=== PATIENT | female | born 1935 | race Caucasian/White ===

== ENCOUNTER → 2017-04-07 | Outpatient (CLI) | payer MEDICARE, OTHER ==
[2017-04-07 12:04] LABS: HEMATOCRIT 35.2 % (36.0-47.0); HEMOGLOBIN 11.8 g/dL (12.0-15.5); HGB HCT DIFFERENCE 0.2; MEAN CORPUSCULAR HEMOGLOBIN 31.5 pg (27.0-33.4); MEAN CORPUSCULAR HGB CONC 33.6 g/dL (32.0-36.0); MEAN CORPUSCULAR VOLUME 94 fl (80-97); RED BLOOD COUNT 3.75 10^6/uL (3.72-5.28); RED CELL DISTRIBUTION WIDTH 13.2 % (11.5-14.0); WHITE BLOOD COUNT 4.5 10^3/uL (4.0-10.5)
[2017-04-07 12:07] LABS: APPEARANCE,URINE CLEAR; BILIRUBIN,URINE NEGATIVE (NEGATIVE); GLUCOSE, URINE NEGATIVE (NEGATIVE); KETONES,URINE NEGATIVE (NEGATIVE); LEUKOCYTE ESTERASE,URINE NEGATIVE (NEGATIVE); NITRITE,URINE NEGATIVE (NEGATIVE); PROTEIN,URINE NEGATIVE (NEGATIVE); URINE SPECIFIC GRAVITY 1.009; UROBILINOGEN,URINE NEGATIVE mg/dL (<2.0)
[2017-04-07 12:28] LABS: ANION GAP 9 (5-19); BLOOD UREA NITROGEN 40 mg/dL (7-20); CALCIUM 9.4 mg/dL (8.4-10.2); CARBON DIOXIDE 22 mmol/L (22-30); CHLORIDE 110 mmol/L (98-107); CREATININE RESULT 2.12 mg/dL (0.52-1.25); GLUCOSE 137 mg/dL (75-110); POTASSIUM 4.6 mmol/L (3.6-5.0); SODIUM 141.4 mmol/L (137-145)
[2017-04-07 12:34] LABS: ANION GAP 9 (5-19); BLOOD UREA NITROGEN 40 mg/dL (7-20); CALCIUM 9.4 mg/dL (8.4-10.2); CARBON DIOXIDE 22 mmol/L (22-30); CHLORIDE 110 mmol/L (98-107); CREATININE RESULT 2.12 mg/dL (0.52-1.25); GLUCOSE 137 mg/dL (75-110); POTASSIUM 4.6 mmol/L (3.6-5.0); SODIUM 141.4 mmol/L (137-145)
[2017-04-07 13:26] LABS: ALANINE AMINOTRANSFERASE 40 U/L (9-52); ALKALINE PHOSPHATASE 87 U/L (38-126); ASPARTATE AMINO TRANSFERASE 34 U/L (14-36); BILIRUBIN,DIRECT 0.4 mg/dL (0.0-0.4); BILIRUBIN,TOTAL 0.6 mg/dL (0.2-1.3); TOTAL PROTEIN 6.4 g/dL (6.3-8.2); URIC ACID 5.9 mg/dL (2.5-7.5)
== END ==
LOC: OD 11:01
PROVIDERS: ATTEND Internal Medicine Cardiovascular Disease
DX: I12.9 Hypertensive chronic kidney disease with stage 1 through stage 4 chronic kidney disease, or unspecified chronic kidney disease (principal); N18.3 Chronic kidney disease, stage 3 (moderate); E78.2 Mixed hyperlipidemia; R00.2 Palpitations; M15.9 Polyosteoarthritis, unspecified
CPT/HCPCS: 36415; 80048; 80076; 81001; 84550; 85027

== ENCOUNTER → 2017-04-14 | Outpatient (CLI) | payer MEDICARE, OTHER ==
[2017-04-14 13:29] LABS: CHOLESTEROL 117.01 mg/dL (0-200); Direct HDL 46 mg/dL (>40); TRIGLYCERIDES 100 mg/dL (<150)
[2017-04-14 13:40] LABS: DIRECT LDL 42 mg/dL (<100)
== END ==
LOC: OD 11:59
PROVIDERS: ATTEND Internal Medicine Cardiovascular Disease
DX: I10 Essential (primary) hypertension (principal); E78.2 Mixed hyperlipidemia; R00.2 Palpitations; M15.9 Polyosteoarthritis, unspecified
CPT/HCPCS: 36415; 80061

== ENCOUNTER → 2017-09-05 | Outpatient (CLI) | payer MEDICARE, OTHER ==
[2017-09-05 10:46] LABS: HEMATOCRIT 36.8 % (36.0-47.0); HEMOGLOBIN 12.6 g/dL (12.0-15.5); MEAN CORPUSCULAR HEMOGLOBIN 31.8 pg (27.0-33.4); MEAN CORPUSCULAR HGB CONC 34.2 g/dL (32.0-36.0); MEAN CORPUSCULAR VOLUME 93 fl (80-97); RED BLOOD COUNT 3.95 10^6/uL (3.72-5.28); WHITE BLOOD COUNT 5.6 10^3/uL (4.0-10.5)
[2017-09-05 11:15] LABS: ANION GAP 13 (5-19); BLOOD UREA NITROGEN 34 mg/dL (7-20); CALCIUM 9.1 mg/dL (8.4-10.2); CARBON DIOXIDE 23 mmol/L (22-30); CHLORIDE 110 mmol/L (98-107); CREATININE RESULT 2.33 mg/dL (0.52-1.25); GLUCOSE 99 mg/dL (75-110); POTASSIUM 4.2 mmol/L (3.6-5.0); SODIUM 145.6 mmol/L (137-145)
[2017-09-05 11:19] LABS: ANION GAP 13 (5-19); BLOOD UREA NITROGEN 34 mg/dL (7-20); CALCIUM 9.1 mg/dL (8.4-10.2); CARBON DIOXIDE 23 mmol/L (22-30); CHLORIDE 110 mmol/L (98-107); CREATININE RESULT 2.33 mg/dL (0.52-1.25); GLUCOSE 99 mg/dL (75-110); POTASSIUM 4.2 mmol/L (3.6-5.0); SODIUM 145.6 mmol/L (137-145)
[2017-09-05 15:25] LABS: APPEARANCE,URINE CLEAR; BILIRUBIN,URINE NEGATIVE (NEGATIVE); GLUCOSE, URINE NEGATIVE (NEGATIVE); KETONES,URINE NEGATIVE (NEGATIVE); LEUKOCYTE ESTERASE,URINE NEGATIVE (NEGATIVE); NITRITE,URINE NEGATIVE (NEGATIVE); PROTEIN,URINE NEGATIVE (NEGATIVE); URINE SPECIFIC GRAVITY 1.006; UROBILINOGEN,URINE NEGATIVE mg/dL (<2.0)
== END ==
LOC: OD 08:58
PROVIDERS: ATTEND Internal Medicine Nephrology
DX: I12.9 Hypertensive chronic kidney disease with stage 1 through stage 4 chronic kidney disease, or unspecified chronic kidney disease (principal); N18.3 Chronic kidney disease, stage 3 (moderate); E87.5 Hyperkalemia; M10.00 Idiopathic gout, unspecified site
CPT/HCPCS: 36415; 80048; 81001; 85027

== ENCOUNTER → 2017-10-25 | Outpatient (CLI) | payer MEDICARE, OTHER ==
[2017-10-25 17:42] LABS: ANION GAP 13 (5-19); BLOOD UREA NITROGEN 42 mg/dL (7-20); CALCIUM 9.1 mg/dL (8.4-10.2); CARBON DIOXIDE 22 mmol/L (22-30); CHLORIDE 108 mmol/L (98-107); CREATININE RESULT 2.19 mg/dL (0.52-1.25); GLUCOSE 100 mg/dL (75-110); POTASSIUM 4.9 mmol/L (3.6-5.0); SODIUM 142.8 mmol/L (137-145)
== END ==
LOC: OD 15:37
PROVIDERS: ATTEND Internal Medicine Cardiovascular Disease
DX: I12.9 Hypertensive chronic kidney disease with stage 1 through stage 4 chronic kidney disease, or unspecified chronic kidney disease (principal); N18.4 Chronic kidney disease, stage 4 (severe)
CPT/HCPCS: 36415; 80048

== ENCOUNTER → 2018-01-26 | Outpatient (CLI) | payer MEDICARE, OTHER ==
[2018-01-26 17:08] LABS: APPEARANCE,URINE CLEAR; BILIRUBIN,URINE NEGATIVE (NEGATIVE); COLOR,URINE STRAW; GLUCOSE, URINE NEGATIVE (NEGATIVE); KETONES,URINE NEGATIVE (NEGATIVE); LEUKOCYTE ESTERASE,URINE NEGATIVE (NEGATIVE); NITRITE,URINE NEGATIVE (NEGATIVE); PROTEIN,URINE NEGATIVE (NEGATIVE); URINE SPECIFIC GRAVITY 1.011; UROBILINOGEN,URINE NEGATIVE mg/dL (<2.0)
[2018-01-26 17:08] LABS: HEMATOCRIT 36.6 % (36.0-47.0); MEAN CORPUSCULAR HEMOGLOBIN 30.6 pg (27.0-33.4); MEAN CORPUSCULAR HGB CONC 32.7 g/dL (32.0-36.0); MEAN CORPUSCULAR VOLUME 94 fl (80-97); PLATELET COUNT 149 10^3/uL (150-450); RED BLOOD COUNT 3.91 10^6/uL (3.72-5.28); RED CELL DISTRIBUTION WIDTH 14.3 % (11.5-14.0); WHITE BLOOD COUNT 4.8 10^3/uL (4.0-10.5)
[2018-01-26 17:15] LABS: ANION GAP 11 (5-19); BLOOD UREA NITROGEN 36 mg/dL (7-20); CARBON DIOXIDE 19 mmol/L (22-30); CHLORIDE 112 mmol/L (98-107); GLUCOSE 93 mg/dL (75-110); POTASSIUM 4.3 mmol/L (3.6-5.0); SODIUM 141.7 mmol/L (137-145); URIC ACID 5.3 mg/dL (2.5-7.5)
== END ==
LOC: OD 15:11
PROVIDERS: ATTEND Internal Medicine Nephrology
DX: I12.9 Hypertensive chronic kidney disease with stage 1 through stage 4 chronic kidney disease, or unspecified chronic kidney disease (principal); N18.4 Chronic kidney disease, stage 4 (severe); E87.5 Hyperkalemia; M10.00 Idiopathic gout, unspecified site
CPT/HCPCS: 36415; 80048; 81001; 84550; 85027

== ENCOUNTER → 2018-03-12 | Outpatient (CLI) | payer MEDICARE, OTHER ==
--- NOTE | 2018-03-12 16:12 | RADIOLOGY REPORT (SQ) ---
EXAM DESCRIPTION: RIBS BILATERAL W/PA CHEST COMPLETED DATE/TIME: 03/12/2018 3:35 pm REASON FOR STUDY: OTHER CHEST PAIN R07.89 OTHER CHEST PAIN COMPARISON: 12/11/2012. NUMBER OF VIEWS: Six views. TECHNIQUE: Images acquired of the right and left ribs in the area of focal concern. LIMITATIONS: None. FINDINGS: RIBS: No acute displaced fracture. No worrisome bone lesions. LUNGS: Limited exam. No obvious pneumothorax. No pleural effusion. OTHER: No other significant finding. IMPRESSION: NO ACUTE DISPLACED RIB FRACTURE. COMMENT: SITE OF TRAUMA/COMPLAINT MARKED/STAMP COMPLETED: YES. TECHNICAL DOCUMENTATION: JOB ID: [id number] [employer]- All Rights Reserved Reading location - IP/workstation name: [email or web address]
== END ==
LOC: OD 15:14
PROVIDERS: ATTEND Internal Medicine Cardiovascular Disease
DX: R07.89 Other chest pain (principal)
CPT/HCPCS: 71111

== ENCOUNTER → 2018-04-02 | Outpatient (CLI) | payer MEDICARE, OTHER ==
[2018-04-02 16:53] LABS: HEMATOCRIT 34.5 % (36.0-47.0); HEMOGLOBIN 11.3 g/dL (12.0-15.5); MEAN CORPUSCULAR HGB CONC 32.8 g/dL (32.0-36.0); MEAN CORPUSCULAR VOLUME 94 fl (80-97); PLATELET COUNT 135 10^3/uL (150-450); RED BLOOD COUNT 3.66 10^6/uL (3.72-5.28); RED CELL DISTRIBUTION WIDTH 15.6 % (11.5-14.0); WHITE BLOOD COUNT 4.9 10^3/uL (4.0-10.5)
[2018-04-02 17:09] LABS: ANION GAP 16 (5-19); BLOOD UREA NITROGEN 48 mg/dL (7-20); CARBON DIOXIDE 17 mmol/L (22-30); CHLORIDE 112 mmol/L (98-107); GLUCOSE 193 mg/dL (75-110); POTASSIUM 5.1 mmol/L (3.6-5.0); SODIUM 145.2 mmol/L (137-145); URIC ACID 6.9 mg/dL (2.5-7.5)
== END ==
LOC: OD 15:30
PROVIDERS: ATTEND Internal Medicine Nephrology
DX: I12.9 Hypertensive chronic kidney disease with stage 1 through stage 4 chronic kidney disease, or unspecified chronic kidney disease (principal); N18.4 Chronic kidney disease, stage 4 (severe); E87.5 Hyperkalemia
CPT/HCPCS: 36415; 80048; 84550; 85027

== ENCOUNTER → 2018-06-12 | Outpatient (CLI) | payer MEDICARE, OTHER ==
[2018-06-12 10:14] LABS: HEMATOCRIT 38.2 % (36.0-47.0); HEMOGLOBIN 12.6 g/dL (12.0-15.5); MEAN CORPUSCULAR HEMOGLOBIN 30.9 pg (27.0-33.4); MEAN CORPUSCULAR VOLUME 94 fl (80-97); PLATELET COUNT 130 10^3/uL (150-450); RED BLOOD COUNT 4.08 10^6/uL (3.72-5.28); WHITE BLOOD COUNT 5.6 10^3/uL (4.0-10.5)
[2018-06-12 10:40] LABS: ALANINE AMINOTRANSFERASE 39 U/L (9-52); ALBUMIN 4.2 g/dL (3.5-5.0); ALKALINE PHOSPHATASE 100 U/L (38-126); ASPARTATE AMINO TRANSFERASE 23 U/L (14-36); BILIRUBIN,DIRECT 0.3 mg/dL (0.0-0.4); BILIRUBIN,TOTAL 0.6 mg/dL (0.2-1.3); BLOOD UREA NITROGEN 54 mg/dL (7-20); CALCIUM 9.2 mg/dL (8.4-10.2); CARBON DIOXIDE 20 mmol/L (22-30); CHLORIDE 111 mmol/L (98-107); CHOLESTEROL 122.41 mg/dL (0-200); GLUCOSE 92 mg/dL (75-110); POTASSIUM 4.2 mmol/L (3.6-5.0); TRIGLYCERIDES 138 mg/dL (<150)
[2018-06-12 10:43] LABS: ANION GAP 13 (5-19); SODIUM 143.5 mmol/L (137-145)
[2018-06-12 10:51] LABS: DIRECT LDL 48 mg/dL (<100)
== END ==
LOC: LAB 09:01
PROVIDERS: ATTEND Internal Medicine Cardiovascular Disease
DX: N18.4 Chronic kidney disease, stage 4 (severe) (principal); E78.2 Mixed hyperlipidemia; Z79.899 Other long term (current) drug therapy
CPT/HCPCS: 36415; 80048; 80061; 80076; 85027

== ENCOUNTER → 2018-10-19 | Outpatient (CLI) | payer MEDICARE, OTHER ==
[2018-10-19 13:53] LABS: HEMATOCRIT 36.6 % (36.0-47.0); HEMOGLOBIN 12.5 g/dL (12.0-15.5); MEAN CORPUSCULAR HGB CONC 34.1 g/dL (32.0-36.0); MEAN CORPUSCULAR VOLUME 94 fl (80-97); PLATELET COUNT 136 10^3/uL (150-450); RED CELL DISTRIBUTION WIDTH 13.6 % (11.5-14.0); WHITE BLOOD COUNT 6.5 10^3/uL (4.0-10.5)
[2018-10-19 14:15] LABS: ANION GAP 14 (5-19); BLOOD UREA NITROGEN 48 mg/dL (7-20); CALCIUM 9.3 mg/dL (8.4-10.2); CARBON DIOXIDE 19 mmol/L (22-30); CHLORIDE 111 mmol/L (98-107); GLUCOSE 103 mg/dL (75-110); SODIUM 143.6 mmol/L (137-145)
[2018-10-19 17:17] LABS: ANION GAP 12 (5-19); BLOOD UREA NITROGEN 52 mg/dL (7-20); CALCIUM 9.2 mg/dL (8.4-10.2); CARBON DIOXIDE 24 mmol/L (22-30); CHLORIDE 109 mmol/L (98-107); GLUCOSE 103 mg/dL (75-110); POTASSIUM 5.3 mmol/L (3.6-5.0); SODIUM 145.1 mmol/L (137-145)
== END ==
LOC: OD 12:40
PROVIDERS: ATTEND Internal Medicine Cardiovascular Disease
DX: D69.6 Thrombocytopenia, unspecified (principal); Z79.899 Other long term (current) drug therapy; I10 Essential (primary) hypertension
CPT/HCPCS: 36415; 80048; 85027

== ENCOUNTER → 2018-11-19 | Outpatient (CLI) | payer MEDICARE, OTHER ==
[2018-11-19 13:16] LABS: ANION GAP 9 (5-19); BLOOD UREA NITROGEN 45 mg/dL (7-20); CALCIUM 9.7 mg/dL (8.4-10.2); CARBON DIOXIDE 24 mmol/L (22-30); CHLORIDE 109 mmol/L (98-107); CHOLESTEROL 134.79 mg/dL (0-200); GLUCOSE 125 mg/dL (75-110); SODIUM 141.9 mmol/L (137-145); TRIGLYCERIDES 100 mg/dL (<150)
[2018-11-19 13:27] LABS: DIRECT LDL 59 mg/dL (<100)
== END ==
LOC: LAB 12:27
PROVIDERS: ATTEND Internal Medicine Cardiovascular Disease
DX: E78.2 Mixed hyperlipidemia (principal); N18.4 Chronic kidney disease, stage 4 (severe); E87.5 Hyperkalemia
CPT/HCPCS: 36415; 80048; 80061

== ENCOUNTER → 2018-12-27 | Outpatient (CLI) | payer MEDICARE, OTHER ==
[2018-12-27 11:03] LABS: HEMATOCRIT 34.7 % (36.0-47.0); HEMOGLOBIN 11.8 g/dL (12.0-15.5); MEAN CORPUSCULAR HEMOGLOBIN 31.7 pg (27.0-33.4); MEAN CORPUSCULAR VOLUME 93 fl (80-97); PLATELET COUNT 137 10^3/uL (150-450); RED BLOOD COUNT 3.73 10^6/uL (3.72-5.28); RED CELL DISTRIBUTION WIDTH 13.5 % (11.5-14.0); WHITE BLOOD COUNT 5.9 10^3/uL (4.0-10.5)
[2018-12-27 11:17] LABS: ALANINE AMINOTRANSFERASE 31 U/L (9-52); ALBUMIN 3.8 g/dL (3.5-5.0); ALKALINE PHOSPHATASE 90 U/L (38-126); ANION GAP 8 (5-19); ASPARTATE AMINO TRANSFERASE 28 U/L (14-36); BILIRUBIN,DIRECT 0.2 mg/dL (0.0-0.4); BILIRUBIN,TOTAL 0.4 mg/dL (0.2-1.3); BLOOD UREA NITROGEN 52 mg/dL (7-20); CALCIUM 8.6 mg/dL (8.4-10.2); CARBON DIOXIDE 22 mmol/L (22-30); CHLORIDE 110 mmol/L (98-107); CHOLESTEROL 103.52 mg/dL (0-200); GLUCOSE 107 mg/dL (75-110); POTASSIUM 4.5 mmol/L (3.6-5.0); SODIUM 140.4 mmol/L (137-145); TOTAL PROTEIN 6.2 g/dL (6.3-8.2); TRIGLYCERIDES 98 mg/dL (<150)
[2018-12-27 11:29] LABS: DIRECT LDL 48 mg/dL (<100)
[2018-12-27 11:34] LABS: ANION GAP 8 (5-19); BLOOD UREA NITROGEN 52 mg/dL (7-20); CALCIUM 8.6 mg/dL (8.4-10.2); CARBON DIOXIDE 22 mmol/L (22-30); CHLORIDE 110 mmol/L (98-107); GLUCOSE 107 mg/dL (75-110); POTASSIUM 4.5 mmol/L (3.6-5.0); SODIUM 140.4 mmol/L (137-145)
[2018-12-27 11:35] LABS: ALANINE AMINOTRANSFERASE 31 U/L (9-52); ALBUMIN 3.8 g/dL (3.5-5.0); ALKALINE PHOSPHATASE 90 U/L (38-126); ASPARTATE AMINO TRANSFERASE 28 U/L (14-36); BILIRUBIN,DIRECT 0.2 mg/dL (0.0-0.4); BILIRUBIN,TOTAL 0.4 mg/dL (0.2-1.3); CHOLESTEROL 103.52 mg/dL (0-200); DIRECT LDL 48 mg/dL (<100); TOTAL PROTEIN 6.2 g/dL (6.3-8.2); TRIGLYCERIDES 98 mg/dL (<150)
== END ==
LOC: OD 09:41
PROVIDERS: ATTEND Internal Medicine Cardiovascular Disease
DX: E78.2 Mixed hyperlipidemia (principal); N18.4 Chronic kidney disease, stage 4 (severe); Z79.899 Other long term (current) drug therapy
CPT/HCPCS: 36415; 80048; 80061; 80076; 85027

== ENCOUNTER → 2019-04-29 | Outpatient (CLI) | payer MEDICARE, OTHER ==
[2019-04-29 11:06] LABS: HEMATOCRIT 37.5 % (36.0-47.0); HEMOGLOBIN 12.5 g/dL (12.0-15.5); MEAN CORPUSCULAR HEMOGLOBIN 31.3 pg (27.0-33.4); MEAN CORPUSCULAR HGB CONC 33.2 g/dL (32.0-36.0); MEAN CORPUSCULAR VOLUME 94 fl (80-97); PLATELET COUNT 129 10^3/uL (150-450); RED BLOOD COUNT 3.98 10^6/uL (3.72-5.28); RED CELL DISTRIBUTION WIDTH 13.1 % (11.5-14.0); WHITE BLOOD COUNT 6.2 10^3/uL (4.0-10.5)
[2019-04-29 11:23] LABS: ALANINE AMINOTRANSFERASE 33 U/L (9-52); ALBUMIN 4.1 g/dL (3.5-5.0); ALKALINE PHOSPHATASE 99 U/L (38-126); ANION GAP 13 (5-19); ASPARTATE AMINO TRANSFERASE 22 U/L (14-36); BILIRUBIN,DIRECT 0.3 mg/dL (0.0-0.4); BILIRUBIN,TOTAL 0.4 mg/dL (0.2-1.3); BLOOD UREA NITROGEN 59 mg/dL (7-20); CALCIUM 9.1 mg/dL (8.4-10.2); CARBON DIOXIDE 21 mmol/L (22-30); CHLORIDE 111 mmol/L (98-107); GLUCOSE 111 mg/dL (75-110); POTASSIUM 4.8 mmol/L (3.6-5.0); SODIUM 144.5 mmol/L (137-145); TOTAL PROTEIN 6.8 g/dL (6.3-8.2); TRIGLYCERIDES 85 mg/dL (<150)
[2019-04-29 11:34] LABS: DIRECT LDL 50 mg/dL (<100)
== END ==
LOC: OD 09:47
PROVIDERS: ATTEND Physician Assistant
DX: Z79.899 Other long term (current) drug therapy (principal); I12.9 Hypertensive chronic kidney disease with stage 1 through stage 4 chronic kidney disease, or unspecified chronic kidney disease; E78.2 Mixed hyperlipidemia; N18.4 Chronic kidney disease, stage 4 (severe)
CPT/HCPCS: 36415; 80048; 80061; 80076; 85027

== ENCOUNTER → 2019-09-30 | Outpatient (CLI) | payer MEDICARE, OTHER ==
[2019-09-30 11:29] LABS: HEMATOCRIT 39.6 % (36.0-47.0); HEMOGLOBIN 13.1 g/dL (12.0-15.5); MEAN CORPUSCULAR HEMOGLOBIN 31.3 pg (27.0-33.4); MEAN CORPUSCULAR VOLUME 95 fl (80-97); PLATELET COUNT 126 10^3/uL (150-450); RED BLOOD COUNT 4.17 10^6/uL (3.72-5.28); RED CELL DISTRIBUTION WIDTH 14.4 % (11.5-14.0); WHITE BLOOD COUNT 5.6 10^3/uL (4.0-10.5)
[2019-09-30 11:44] LABS: APPEARANCE,URINE CLEAR; BILIRUBIN,URINE NEGATIVE (NEGATIVE); COLOR,URINE STRAW; GLUCOSE, URINE NEGATIVE (NEGATIVE); KETONES,URINE NEGATIVE (NEGATIVE); LEUKOCYTE ESTERASE,URINE NEGATIVE (NEGATIVE); NITRITE,URINE NEGATIVE (NEGATIVE); PROTEIN,URINE NEGATIVE (NEGATIVE); URINE SPECIFIC GRAVITY 1.012; UROBILINOGEN,URINE NEGATIVE mg/dL (<2.0)
[2019-09-30 11:49] LABS: ALBUMIN 4.5 g/dL (3.5-5.0); ALKALINE PHOSPHATASE 133 U/L (38-126); ANION GAP 12 (5-19); ASPARTATE AMINO TRANSFERASE 27 U/L (14-36); BILIRUBIN,DIRECT 0.2 mg/dL (0.0-0.4); BILIRUBIN,TOTAL 0.5 mg/dL (0.2-1.3); BLOOD UREA NITROGEN 46 mg/dL (7-20); CALCIUM 9.3 mg/dL (8.4-10.2); CARBON DIOXIDE 20 mmol/L (22-30); CHLORIDE 110 mmol/L (98-107); GLUCOSE 116 mg/dL (75-110); TOTAL PROTEIN 7.7 g/dL (6.3-8.2); TRIGLYCERIDES 130 mg/dL (<150)
[2019-09-30 12:11] LABS: DIRECT LDL 55 mg/dL (<100)
[2019-09-30 12:25] LABS: BLOOD UREA NITROGEN 46 mg/dL (7-20); CALCIUM 9.3 mg/dL (8.4-10.2); GLUCOSE 116 mg/dL (75-110)
[2019-09-30 12:26] LABS: ANION GAP 12 (5-19); CARBON DIOXIDE 20 mmol/L (22-30); CHLORIDE 110 mmol/L (98-107)
== END ==
LOC: OD 10:40
PROVIDERS: ATTEND Physician Assistant
DX: I12.9 Hypertensive chronic kidney disease with stage 1 through stage 4 chronic kidney disease, or unspecified chronic kidney disease (principal); N18.4 Chronic kidney disease, stage 4 (severe); E87.5 Hyperkalemia; M10.00 Idiopathic gout, unspecified site; E78.2 Mixed hyperlipidemia; Z79.899 Other long term (current) drug therapy
CPT/HCPCS: 36415; 80048; 80061; 80076; 81001; 83970; 84100; 85027

== ENCOUNTER → 2020-01-06 | Outpatient (CLI) | payer MEDICARE, OTHER ==
[2020-01-06 10:20] LABS: ALKALINE PHOSPHATASE 99 U/L (38-126); ANION GAP 10 (5-19); ASPARTATE AMINO TRANSFERASE 17 U/L (14-36); BILIRUBIN,TOTAL 0.3 mg/dL (0.2-1.3); BLOOD UREA NITROGEN 56 mg/dL (7-20); CALCIUM 9.1 mg/dL (8.4-10.2); CARBON DIOXIDE 22 mmol/L (22-30); CHLORIDE 110 mmol/L (98-107); CHOLESTEROL 112.33 mg/dL (0-200); GLUCOSE 118 mg/dL (75-110); POTASSIUM 4.5 mmol/L (3.6-5.0); TOTAL PROTEIN 6.7 g/dL (6.3-8.2); TRIGLYCERIDES 123 mg/dL (<150)
[2020-01-06 10:31] LABS: DIRECT LDL 51 mg/dL (<100)
== END ==
LOC: OD 09:18
PROVIDERS: ATTEND Physician Assistant
DX: E78.2 Mixed hyperlipidemia (principal); I10 Essential (primary) hypertension; Z79.899 Other long term (current) drug therapy
CPT/HCPCS: 36415; 80048; 80061; 80076

== ENCOUNTER → 2020-04-10 | Outpatient (CLI) | payer MEDICARE, OTHER ==
[2020-04-10 11:08] LABS: ALKALINE PHOSPHATASE 87 U/L (38-126); ANION GAP 11 (5-19); ASPARTATE AMINO TRANSFERASE 19 U/L (14-36); BILIRUBIN,DIRECT 0.1 mg/dL (0.0-0.4); BILIRUBIN,TOTAL 0.5 mg/dL (0.2-1.3); BLOOD UREA NITROGEN 35 mg/dL (7-20); CALCIUM 8.9 mg/dL (8.4-10.2); CARBON DIOXIDE 19 mmol/L (22-30); CHLORIDE 111 mmol/L (98-107); CHOLESTEROL 107.48 mg/dL (0-200); GLUCOSE 98 mg/dL (75-110); POTASSIUM 3.9 mmol/L (3.6-5.0); TRIGLYCERIDES 101 mg/dL (<150)
[2020-04-10 11:19] LABS: DIRECT LDL 53 mg/dL (<100)
== END ==
LOC: OD 09:40
PROVIDERS: ATTEND Physician Assistant
DX: E78.2 Mixed hyperlipidemia (principal); I10 Essential (primary) hypertension; Z79.899 Other long term (current) drug therapy
CPT/HCPCS: 36415; 80048; 80061; 80076

== ENCOUNTER → 2020-07-22 | Outpatient (CLI) | payer MEDICARE, OTHER ==
[2020-07-22 11:45] LABS: ABSOLUTE BASOPHILS # (AUTO) 0.1 10^3/uL (0.0-0.2); ABSOLUTE EOSINOPHILS # (AUTO) 0.1 10^3/uL (0.0-0.6); ABSOLUTE LYMPHOCYTES (AUTO) 1.3 10^3/uL (0.5-4.7); ABSOLUTE MONOCYTES (AUTO) 0.7 10^3/uL (0.1-1.4); ABSOLUTE NEUT (AUTO) 3.3 10^3/uL (1.7-8.2); EOSINOPHILS % (AUTO) 2.6 % (0-6); LYMPHOCYTES % (AUTO) 24.3 % (13-45); MEAN CORPUSCULAR HEMOGLOBIN 31.2 pg (27.0-33.4); MEAN CORPUSCULAR HGB CONC 33.4 g/dL (32.0-36.0); MEAN CORPUSCULAR VOLUME 94 fl (80-97); PLATELET COUNT 142 10^3/uL (150-450); RED BLOOD COUNT 3.84 10^6/uL (3.72-5.28); RED CELL DISTRIBUTION WIDTH 14.8 % (11.5-14.0); SEGMENTED NEUTROPHILS % (AUTO) 59.1 % (42-78); TOTAL CELLS COUNTED % (AUTO) 100 %; WHITE BLOOD COUNT 5.5 10^3/uL (4.0-10.5)
[2020-07-22 12:02] LABS: ALKALINE PHOSPHATASE 64 U/L (38-126); ANION GAP 8 (5-19); ASPARTATE AMINO TRANSFERASE 24 U/L (14-36); BILIRUBIN,DIRECT 0.3 mg/dL (0.0-0.4); BILIRUBIN,TOTAL 0.6 mg/dL (0.2-1.3); BLOOD UREA NITROGEN 29 mg/dL (7-20); CALCIUM 8.9 mg/dL (8.4-10.2); CARBON DIOXIDE 21 mmol/L (22-30); CHLORIDE 111 mmol/L (98-107); CHOLESTEROL 122.83 mg/dL (0-200); GLUCOSE 100 mg/dL (75-110); POTASSIUM 4.2 mmol/L (3.6-5.0); TOTAL PROTEIN 6.6 g/dL (6.3-8.2); TRIGLYCERIDES 101 mg/dL (<150)
[2020-07-22 12:09] LABS: APPEARANCE,URINE CLEAR; BILIRUBIN,URINE NEGATIVE (NEGATIVE); COLOR,URINE YELLOW; GLUCOSE, URINE NEGATIVE (NEGATIVE); KETONES,URINE NEGATIVE (NEGATIVE); LEUKOCYTE ESTERASE,URINE TRACE (NEGATIVE); NITRITE,URINE NEGATIVE (NEGATIVE); PROTEIN,URINE NEGATIVE (NEGATIVE); URINE SPECIFIC GRAVITY 1.014; UROBILINOGEN,URINE NEGATIVE mg/dL (<2.0)
[2020-07-22 12:18] LABS: DIRECT LDL 57 mg/dL (<100)
[2020-07-22 12:20] LABS: ADD MANUAL MICROSCOPIC YES
[2020-07-22 12:21] LABS: HYALINE CASTS, URINE RARE /LPF; RBC,URINE NONE SEEN /HPF; WBC,URINE 0-1 /HPF
[2020-07-22 12:38] LABS: UR PRO/CREAT RATIO RESULT 0.3 mg/mg (0.0-0.2); URINE CREATININE 99.2 mg/dL (15-278); URINE PROTEIN 29.3 mg/dL (<12)
[2020-07-22 13:04] LABS: CALCIUM 8.9 mg/dL (8.4-10.2); GLUCOSE 100 mg/dL (75-110)
[2020-07-22 13:05] LABS: ANION GAP 8 (5-19); BLOOD UREA NITROGEN 29 mg/dL (7-20); CARBON DIOXIDE 21 mmol/L (22-30); CHLORIDE 111 mmol/L (98-107); PHOSPHORUS 3.5 mg/dL (2.5-4.5); POTASSIUM 4.2 mmol/L (3.6-5.0)
== END ==
LOC: OD 11:10
PROVIDERS: ATTEND Physician Assistant
DX: I12.9 Hypertensive chronic kidney disease with stage 1 through stage 4 chronic kidney disease, or unspecified chronic kidney disease (principal); N18.4 Chronic kidney disease, stage 4 (severe); E78.2 Mixed hyperlipidemia; E87.5 Hyperkalemia; N25.0 Renal osteodystrophy; Z79.899 Other long term (current) drug therapy
CPT/HCPCS: 36415; 80048; 80061; 80076; 81001; 82306; 82570; 83970; 84100; 84156; 85025

== ENCOUNTER 2020-08-27 20:04 | Observation (INO) | payer MEDICARE ==
--- NOTE | 2020-08-27 21:02 | ER Document Report ---
ED General - General Chief Complaint: confusion Stated Complaint: CONFUSION Time Seen by Provider: 08/27/20 20:52 Notes: Patient is an 85-year-old female that comes emergency department for chief complaint of confusion, weakness, unsteadiness. She comes by EMS. Son states that he went over to have dinner with her and at about 1750 she suddenly became confused, she thought that her son was her , she suddenly became unsteady, shaky, and less responsive. Son states he had to walk supporting her to keep her from falling over which is not her baseline. Son states that he tried to let her rest and hydrate her, however she continued to be confused so he called EMS after a short while. Patient denies headache, chest pain, focal numbness or weakness, visual changes. She is oriented to place, some events, but not time which is not baseline per son. She has not had any injury, fever, vomiting, or any other complaints reportedly. Past medical history of hypertension, chronic kidney disease, hyperlipidemia and early dementia. Son states that she has been taking her medications at home only intermittently. TRAVEL OUTSIDE OF THE [place] IN LAST 30 DAYS: No - Related Data Allergies/Adverse Reactions: enalapril maleate [From Vasotec] Allergy (Verified 06/26/15 07:46) TONGUE SWELLING enalaprilat dihydrate [From Vasotec] Allergy (Verified 06/26/15 07:46) TONGUE SWELLING metoclopramide HCl [From Reglan] Allergy (Verified 06/26/15 07:46) JAWS TO LOCK Penicillins Allergy (Verified 06/26/15 07:46) hives all over body Sulfa (Sulfonamide Antibiotics) Allergy (Verified 06/26/15 07:46) Hives Past Medical History - General Information source: Patient, Relative - Social History Smoking Status: Never Smoker Chew tobacco use (# tins/day): No Frequency of alcohol use: None Drug Abuse: None Lives with: Family Family History: Reviewed & Not Pertinent Patient has homicidal ideation: No - Past Medical History Cardiac Medical History: Reports: Hx Coronary Artery Disease, Hx Hypercholesterolemia, Hx Hypertension Denies: Hx Atrial Fibrillation, Hx Congestive Heart Failure, Hx Heart Attack, Hx Peripheral Vascular Disease, Hx Pulmonary Embolism, Hx Heart Murmur Pulmonary Medical History: Reports: Hx Bronchitis Denies: Hx Asthma, Hx COPD, Hx Pneumonia, Hx Respiratory Failure, Hx Sleep Apnea, Hx Tuberculosis Neurological Medical History: Denies: Hx Cerebrovascular Accident, Hx Seizures, Hx Parkinson's Disease Endocrine Medical History: Denies: Hx Graves' Disease, Hx Hyperthyroidism, Hx Hypothyroidism Renal/ Medical History: Reports: Hx End Stage Renal Disease. Denies: Hx Kidney Stones, Hx Ovarian Cysts, Hx Peritoneal Dialysis, Hx Pelvic Inflammatory Disease Malignancy Medical History: Denies: Hx Breast Cancer, Hx Cervical Cancer, Hx Leukemia, Hx Lung Cancer, Hx Ovarian Cancer GI Medical History: Reports: Hx Hiatal Hernia. Denies: Hx Crohn's Disease, Hx Gastroesophageal Reflux Disease, Hx Hepatitis, Hx Irritable Bowel, Hx Liver Failure, Hx Pancreatitis, Hx Ulcer Musculoskeletal Medical History: Denies Hx Arthritis, Denies Hx Fibromyalgia, Denies Hx Multiple Sclerosis, Denies Hx Muscular Dystrophy, Denies Hx Systemic Lupus Erythematosus Psychiatric Medical History: Denies: Hx Bipolar Disorder, Hx Dementia, Hx Depression, Hx Post Traumatic Stress Disorder, Hx Schizophrenia Traumatic Medical History: Denies: Hx Fractures Infectious Medical History: Denies: Hx Hepatitis, Hx HIV Past Surgical History: Reports: Hx Coronary Artery Bypass Graft, Hx Hysterectom y, Hx Open Heart Surgery - cabgx1, Hx Tonsillectomy - 40 years ago. Denies: Hx Appendectomy, Hx Bowel Surgery, Hx Section, Hx Cholecystectomy, Hx Colostomy, Hx Gastric Bypass Surgery, Hx Herniorrhaphy, Hx Mastectomy, Hx Pacemaker, Hx Tubal Ligation - Immunizations Hx Diphtheria, Pertussis, Tetanus Vaccination: Yes Hx Pneumococcal Vaccination: 11/20/09 Review of Systems - Review of Systems Constitutional: See HPI EENT: No symptoms reported Cardiovascular: No symptoms reported Respiratory: No symptoms reported Gastrointestinal: No symptoms reported Genitourinary: No symptoms reported Female Genitourinary: No symptoms reported Musculoskeletal: No symptoms reported Skin: No symptoms reported Hematologic/Lymphatic: No symptoms reported Neurological/Psychological: See HPI Physical Exam - Vital signs Vitals: Temp 98.6 F 08/27/20 20:04 - Notes Notes: GENERAL: Patient is slightly tremulous in appearance but she is alert and does not appear to be in distress HEAD: Normocephalic, atraumatic. EYES: Pupils equal, round, and reactive to light. Extraocular movements intact. ENT: Oral mucosa moist, tongue midline. Oropharynx unremarkable. Airway patent. LUNGS: Clear to auscultation bilaterally, no wheezes, rales, or rhonchi. No respiratory distress. Non-tender chest wall. HEART: Regular rate and rhythm. No murmur ABDOMEN: Soft, non-tender. Non-distended. EXTREMITIES: Moves all 4 extremities spontaneously. No edema, normal radial and dorsalis pedis pulses bilaterally. No cyanosis. BACK: no cervical, thoracic, lumbar midline tenderness. No saddle anesthesia, normal distal neurovascular exam. Moves all extremities in full range of motion. NEUROLOGICAL: Alert and oriented to place and person but not to time or all events. Normal speech. Cranial nerves II through XII grossly intact. Strength 5/5 in all extremities. PSYCH: Normal affect, normal mood. SKIN: Warm, dry, normal turgor. No rashes or lesions noted. Course - Re-evaluation Re-evalutation: Patient is neurologically intact except for confusion of the year and some details from earlier today. Patient is very unsteady and becomes very shaky whe n we try to stand her although she does not fall to one specific side. She does not appear to have a focal weakness. She does not have any neurological deficits noted otherwise. CAT scan of the head with no acute findings. Chest x-ray unremarkable. CBC, chemistry nonspecific other than low bicarbonate and chronic kidney disease. Troponin is not elevated. Work-up nonspecific. Son is very concerned patient may have had a stroke versus TIA based on her acute worsening mental status and weakness, he does report that she is she has some baseline dementia that she has started seeing psychiatry for but he states that her baseline is much better than what she had this evening. I discussed with Dr. amezcua, he recommends I speak to the hospitalist for admission/observation and MRI of the brain in the morning. I discussed with Dr. Hansen, hospitalist, patient excepted to observation st atus. Son and patient state appreciation and agreement. - Vital Signs Vital signs: Temp Pulse Resp BP Pulse Ox 98.6 F 15 183/76 H 98 08/27/20 20:04 08/28/20 00:01 08/28/20 00:00 08/28/20 00:01 - Laboratory Result Diagrams: 08/27/20 20:15 08/27/20 20:15 Laboratory results interpreted by me: 08/27/20 08/27/20 08/27/20 20:15 20:15 20:15 Hgb 11.7 L Hct 35.0 L Petroleum % (Auto) 14.5 H APTT 38.6 H Chloride 111 H Carbon Dioxide 18 L BUN 38 H Creatinine 1.96 H Est GFR ( Amer) 29 L Est GFR (MDRD) Non-Af 24 L Ur Leukocyte Esterase 08/27/20 23:00 Hgb Hct Petroleum % (Auto) APTT Chloride Carbon Dioxide BUN Creatinine Est GFR ( Amer) Est GFR (MDRD) Non-Af Ur Leukocyte Esterase TRACE H - EKG Interpretation by Me Additional EKG results interpreted by me: EKG shows sinus rhythm at a rate of 70, normal axis, no T wave inversions ST segment changes in consecutive leads. Borderline prolonged QT interval at 493. Discharge - Discharge Clinical Impression: Unsteady gait Altered mental status Qualifiers: Altered mental status type: unspecified Qualified Code(s): R41.82 - Altered mental status, unspecified Condition: Stable Disposition: ADMITTED OBSERVATION Admitting Provider: Jade (Hospitalist) Unit Admitted: Telemetry
[2020-08-27 22:00] LABS: ABSOLUTE BASOPHILS # (AUTO) 0.2 10^3/uL (0.0-0.2); ABSOLUTE EOSINOPHILS # (AUTO) 0.2 10^3/uL (0.0-0.6); ABSOLUTE LYMPHOCYTES (AUTO) 2.8 10^3/uL (0.5-4.7); ABSOLUTE MONOCYTES (AUTO) 1.3 10^3/uL (0.1-1.4); ABSOLUTE NEUT (AUTO) 4.4 10^3/uL (1.7-8.2); BASOPHILS % (AUTO) 1.8 % (0-2); EOSINOPHILS % (AUTO) 2.4 % (0-6); HEMOGLOBIN 11.7 g/dL (12.0-15.5); LYMPHOCYTES % (AUTO) 31.7 % (13-45); MEAN CORPUSCULAR HEMOGLOBIN 31.3 pg (27.0-33.4); MEAN CORPUSCULAR HGB CONC 33.5 g/dL (32.0-36.0); MEAN CORPUSCULAR VOLUME 94 fl (80-97); MONOCYTES % (AUTO) 14.5 % (3-13); PLATELET COUNT 167 10^3/uL (150-450); RED BLOOD COUNT 3.75 10^6/uL (3.72-5.28); RED CELL DISTRIBUTION WIDTH 13.9 % (11.5-14.0); SEGMENTED NEUTROPHILS % (AUTO) 49.6 % (42-78); TOTAL CELLS COUNTED % (AUTO) 100 %; WHITE BLOOD COUNT 8.8 10^3/uL (4.0-10.5)
[2020-08-27 22:03] LABS: INTERNATIONAL RATION (INR) 0.94; PROTHROMBIN TIME 12.8 SEC (11.4-15.4)
[2020-08-27 22:04] LABS: PARTIAL THROMBOPLASTIN TIME 38.6 SEC (23.5-35.8)
[2020-08-27 22:12] LABS: ALBUMIN 3.9 g/dL (3.5-5.0); ALKALINE PHOSPHATASE 90 U/L (38-126); ANION GAP 11 (5-19); ASPARTATE AMINO TRANSFERASE 17 U/L (14-36); BILIRUBIN,DIRECT 0.3 mg/dL (0.0-0.4); BILIRUBIN,TOTAL 0.5 mg/dL (0.2-1.3); BLOOD UREA NITROGEN 38 mg/dL (7-20); CALCIUM 8.8 mg/dL (8.4-10.2); CARBON DIOXIDE 18 mmol/L (22-30); CHLORIDE 111 mmol/L (98-107); GLUCOSE 90 mg/dL (75-110); POTASSIUM 4.3 mmol/L (3.6-5.0); TOTAL PROTEIN 6.7 g/dL (6.3-8.2)
--- NOTE | 2020-08-27 22:18 | RADIOLOGY REPORT (SQ) ---
CT HEAD WITHOUT IV CONTRAST HISTORY: Altered mental status. COMPARISON: None. TECHNIQUE: CT scan of the brain was performed without IV contrast. This exam was performed according to our departmental dose-optimization program, which includes automated exposure control, adjustment of the mA and/or kV according to patient size and/or use of iterative reconstruction technique. FINDINGS: There are scattered areas of hypoattenuation within the periventricular white matter, which likely represent chronic microvascular ischemia. 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 No evidence of acute infarction, intracranial hemorrhage, extra-axial fluid collection, or midline shift. No air-fluid levels are seen in the paranasal sinuses to suggest acute sinusitis. No depressed skull fracture. IMPRESSION: 1. No acute intracranial findings. 2. Senescent changes with chronic microvascular ischemia.
--- NOTE | 2020-08-27 22:35 | RADIOLOGY REPORT (SQ) ---
EXAM DESCRIPTION: XR CHEST 1 VIEW COMPLETED DATE/TME: 08/27/2020 20:59 CLINICAL HISTORY: 85 years, Female, confusion, weakness COMPARISON: Prior study from 03/12/2018 NUMBER OF VIEWS: One TECHNIQUE: Single frontal view of the chest was obtained portably LIMITATIONS: None. FINDINGS: Status post median sternotomy. Cardiac and mediastinal contours are stable. Parenchymal bands are noted about the left lung base, likely areas of atelectasis and/or scar. Lungs are otherwise clear. No pleural effusion or pneumothorax. Biapical scarring. IMPRESSION: No acute disease. copyright 2010 [employer]- All Rights Reserved
--- NOTE | 2020-08-27 23:36 | EKG REPORT ---
SEVERITY:- ABNORMAL ECG - SINUS RHYTHM PROBABLE LEFT ATRIAL ABNORMALITY BORDERLINE T WAVE ABNORMALITIES BORDERLINE PROLONGED QT INTERVAL : Confirmed by: Brenda Garcia MD 27-Aug-2020 23:35:09
[2020-08-28 00:14] LABS: APPEARANCE,URINE CLEAR; BILIRUBIN,URINE NEGATIVE (NEGATIVE); COLOR,URINE STRAW; GLUCOSE, URINE NEGATIVE (NEGATIVE); KETONES,URINE NEGATIVE (NEGATIVE); LEUKOCYTE ESTERASE,URINE TRACE (NEGATIVE); NITRITE,URINE NEGATIVE (NEGATIVE); PROTEIN,URINE NEGATIVE (NEGATIVE); URINE SPECIFIC GRAVITY 1.005; UROBILINOGEN,URINE NEGATIVE mg/dL (<2.0)
[2020-08-28] MEDS ORDERED: AMLODIPINE BESYLATE 5 MG TABLET PO ONE (02:24)
[2020-08-28] MEDS ORDERED: MAGNESIUM HYDROXIDE SUSP 30 ML UDCUP PO PRN (02:26)
[2020-08-28] MEDS ORDERED: MELATONIN 5 MG TABLET PO ONE (02:26)
[2020-08-28] MEDS ORDERED: NORMAL SALINE 1000 ML 1,000 ML IV PRN (02:26)
[2020-08-28] MEDS ORDERED: ONDANSETRON 4 MG TAB.RAPDIS PO PRN (02:26)
[2020-08-28] MEDS ORDERED: ACETAMINOPHEN 325 MG TABLET PO PRN (02:26)
[2020-08-28] MEDS ORDERED: MAG HYDROX/AL HYDROX/SIMETH SUSP 30 ML UDCUP PO PRN (02:26)
--- NOTE | 2020-08-28 02:40 | PDOC H&P ---
History of Present Illness Admission Date/PCP: 08/28/20 00:18 DON ROLDAN MD Patient complains of: Confusion History of Present Illness: BEVERLEY TAMAYO is a 85 year old female who has had episodes of confusion in the past. She has a history of hypertension, coronary artery disease and chronic kidney disease. She also has increased cholesterol and gout. The son states that her neuropsychologist gave her diagnosis of some type of encephalopathy but by history it sounds like she has dementia. The patient became somewhat confused earlier. She tends not to drink enough fluids. There have been some chronic changes as well. She is not compliant with her medications and I believe this is because she does not have the cognitive ability to manage her medications. She refused to use pillboxes. Her son, who is at the bedside, reports significant emotional lability. On exam her BUN is 38 with a creatinine of 1.96. She does not have an elevated white blood cell count. CT scan of the head showed no acute infarcts. Old lacunar infarcts in bilateral basal ganglia as well as cerebral atrophy from microvascular disease. Past Medical History Cardiac Medical History: Reports: Coronary Artery Disease, Hyperlipidema, Hypertension Denies: Atrial Fibrillation, Congestive Heart Failure, Myocardial Infarction, Peripheral Vascular Disease, Pulmonary Embolism, Heart Murmur Pulmonary Medical History: Reports: Bronchitis Denies: Asthma, Chronic Obstructive Pulmonary Disease (COPD), Pneumonia, Respiratory Failure, Sleep Apnea, Tuberculosis Neurological Medical History: Denies: Seizures Endocrine Medical History: Denies: Hyperthyroidism, Hypothyroidism Renal/ Medical History: Reports: End Stage Renal Disease Malignancy Medical History: Denies: Breast Cancer, Cervical Cancer, Leukemia, Lung Cancer, Ovarian Cancer GI Medical History: Reports: Hiatal Hernia Denies: Crohn's Disease, Gastroesophageal Reflux Disease, Hepatitis Musculoskeltal Medical History: Denies: Arthritis, Fibromyalgia Psychiatric Medical History: Denies: Bipolar Disorder, Dementia, Depression, Post Traumatic Stress Disorder Hematology: Reports: Anemia - year unknown Denies: Hemophilia, Sickle Cell Disease Infectious Medical History: Denies: HIV Past Surgical History Past Surgical History: Reports: Coronary Artery Bypass Graft, Hysterectomy, Tonsillectomy - 40 years ago Denies: Amputation, Appendectomy, Section, Cholecystectomy, Colostomy, Gastric Bypass Surgery, Herniorrhaphy, Mastectomy, Pacemaker, Tubal Ligation Social History Information Source: Patient, Relative, [facility] Records Lives with: Alone, Other - Her son lives across the street Smoking Status: Never Smoker Electronic Cigarette use?: No Frequency of Alcohol Use: None Hx Recreational Drug Use: No Hx Prescription Drug Abuse: No - Advance Directive Resuscitation Status: Full Code Family History Family History: Reviewed & Not Pertinent Parental Family History Reviewed: Yes Children Family History Reviewed: Yes Sibling(s) Family History Reviewed.: Yes Medication/Allergy Home Medications: Allopurinol [Zyloprim 100 mg Tablet] 100 mg PO DAILY 08/28/20 Amlodipine Besylate [Norvasc 10 mg Tablet] 10 mg PO QHS 08/28/20 Atorvastatin Calcium [Lipitor 40 mg Tablet] 40 mg PO QHS 08/28/20 Calcitriol [Rocaltrol 0.25 mcg Capsule] 1 cap PO MOWEFR@1000 08/28/20 Isosorbide Mononitrate [Imdur 30 mg Tablet.er] 30 mg PO DAILY #30 tab.er.24h 08/28/20 Losartan Potassium [Cozaar] 25 mg PO DAILY #30 tablet 08/28/20 Metoprolol Succinate [Toprol Xl 25 mg Tab.sr] 25 mg PO DAILY #30 tab.sr.24h 08/28/20 Mirtazapine [Remeron 15 mg Tablet] 7.5 mg PO QHS 08/28/20 Allergies/Adverse Reactions: enalapril maleate [From Vasotec] Allergy (Verified 06/26/15 07:46) TONGUE SWELLING enalaprilat dihydrate [From Vasotec] Allergy (Verified 06/26/15 07:46) TONGUE SWELLING metoclopramide HCl [From Reglan] Allergy (Verified 06/26/15 07:46) JAWS TO LOCK Penicillins Allergy (Verified 06/26/15 07:46) hives all over body Sulfa (Sulfonamide Antibiotics) Allergy (Verified 06/26/15 07:46) Hives Review of Systems All systems: reviewed and no additional remarkable complaints except as stated Constitutional: PRESENT: fatigue Neurological: PRESENT: confusion, memory loss Psychiatric: PRESENT: anxiety Physical Exam Vital Signs: Temp Pulse Resp BP Pulse Ox 98.4 F 66 17 182/65 H 99 08/28/20 01:29 08/28/20 00:00 08/28/20 02:01 08/28/20 02:01 08/28/20 02:01 Intake & Output 08/26/20 08/27/20 08/28/20 06:59 06:59 06:59 Weight 61.235 kg General appearance: PRESENT: no acute distress, cooperative, well-developed, well-nourished Head exam: PRESENT: atraumatic, normocephalic Eye exam: PRESENT: conjunctiva pink, EOMI, PERRLA. ABSENT: scleral icterus Ear exam: PRESENT: normal external ear exam. ABSENT: bleeding, drainage Mouth exam: PRESENT: moist, tongue midline Neck exam: ABSENT: carotid bruit, JVD, lymphadenopathy Respiratory exam: PRESENT: rales - Bilateral bases, symmetrical, unlabored. ABSENT: rhonchi, tachypnea, wheezes Cardiovascular exam: PRESENT: RRR, +S1, +S2, systolic murmur - 3/6 GI/Abdominal exam: PRESENT: normal bowel sounds, soft. ABSENT: distended, guarding, tenderness Rectal exam: PRESENT: deferred Gentrourinary exam: ABSENT: indwelling catheter Extremities exam: ABSENT: pedal edema Musculoskeletal exam: PRESENT: normal inspection, other - 3/5 oracle security consultant strength upper extremities symmetric Neurological exam: PRESENT: alert, awake, oriented to person, oriented to place, oriented to situation, CN II-XII grossly intact Psychiatric exam: PRESENT: flat affect. ABSENT: agitated, anxious Results Laboratory Results: 08/27/20 20:15 08/27/20 20:15 08/27/20 08/27/20 08/27/20 20:15 20:15 20:15 WBC 8.8 RBC 3.75 Hgb 11.7 L Hct 35.0 L MCV 94 MCH 31.3 MCHC 33.5 RDW 13.9 Plt Count 167 Seg Neutrophils % 49.6 Sodium 139.9 Potassium 4.3 Chloride 111 H Carbon Dioxide 18 L Anion Gap 11 BUN 38 H Creatinine 1.96 H Est GFR ( Amer) 29 L Glucose 90 Lactic Acid 0.8 Calcium 8.8 Total Bilirubin 0.5 AST 17 Alkaline Phosphatase 90 Total Protein 6.7 Albumin 3.9 Urine Color Urine Appearance Urine pH Ur Specific [place] Urine Protein Urine Glucose (UA) Urine Ketones Urine Blood Urine Nitrite Ur Leukocyte Esterase Urine WBC (Auto) 08/27/20 23:00 WBC RBC Hgb Hct MCV MCH MCHC RDW Plt Count Seg Neutrophils % Sodium Potassium Chloride Carbon Dioxide Anion Gap BUN Creatinine Est GFR ( Amer) Glucose Lactic Acid Calcium Total Bilirubin AST Alkaline Phosphatase Total Protein Albumin Urine Color STRAW Urine Appearance CLEAR Urine pH 5.0 Ur Specific [place] 1.005 Urine Protein NEGATIVE Urine Glucose (UA) NEGATIVE Urine Ketones NEGATIVE Urine Blood NEGATIVE Urine Nitrite NEGATIVE Ur Leukocyte Esterase TRACE H Urine WBC (Auto) 6 08/27/20 20:15 Troponin I < 0.012 Impressions: Chest X-Ray 08/27/20 20:59 IMPRESSION: No acute disease. copyright 2011 [employer]- All Rights Reserved Head CT 08/27/20 20:59 IMPRESSION: 1. No acute intracranial findings. 2. Senescent changes with chronic microvascular ischemia. Assessment and Plan - Diagnosis (1) Altered mental status Qualifiers: Altered mental status type: unspecified Qualified Code(s): R41.82 - Altered mental status, unspecified Is this a current diagnosis for this admission?: Yes Plan: Unsure of the etiology. Doubtful that it is infectious. I believe that his dementia with its typical abdomen flow and windows of exacerbation. It could have been induced by high blood pressure as well. We will monitor the patient o vernight to look for improvement. (2) Dementia Qualifiers: Dementia type: unspecified type Dementia behavioral disturbance: without behavioral disturbance Qualified Code(s): F03.90 - Unspecified dementia without behavioral disturbance Is this a current diagnosis for this admission?: Yes Plan: I believe that the patient does have dementia. Her son describes episodes of emotional lability so there may very well be some behavioral issues but these would be mild. The patient son was asking about seeing a gerontologist after discharge. (3) Hypertension Qualifiers: Hypertension type: essential hypertension Qualified Code(s): I10 - Essential (primary) hypertension Is this a current diagnosis for this admission?: Yes Plan: Blood pressure was elevated on admission. I believe this is because of noncompliance with her medications. Home health might be able to assist initially but it sounds like the patient would benefit from assisted living or some other supervised facility. Will resume her home medications initially and see if this is adequate to control her blood pressure. If not we can adjust the medications. (4) Hyperlipidemia Qualifiers: Hyperlipidemia type: unspecified Qualified Code(s): E78.5 - Hyperlipidemia, unspecified Is this a current diagnosis for this admission?: Yes Plan: Continue statin therapy. (5) CAD (coronary artery disease) Qualifiers: Coronary Disease-Associated Artery/Lesion type: [place] artery [place] vs. transplanted heart: [place] heart Associated angina: without angina Qualified Code(s): I25.10 - Atherosclerotic heart disease of [place] coronary artery without angina pectoris Is this a current diagnosis for this admission?: Yes Plan: No evidence or symptoms of acute coronary syndrome at this time. Continue home medications. (6) Unsteady gait Is this a current diagnosis for this admission?: Yes Plan: Could be secondary to mild hypovolemia however I believe it is the underlying dementia that is causing multiple neurologic issues. - Plan Summary Summary: Ms. Tamayo is an 85 year old woman with PMH of Alzheimer's Dementia who presented to the ED with her son due to concern for "altered mental status." Her son states that, at baseline, his mother lives alone but requires assistance with all iADLs. She has recently been having trouble taking her medications by herself, no longer being able to correctly place them in her medication dispenser, and sometimes not taking medications or taking them repeatedly throughout the day. He states that she has had memory problems for many years, but that her memory and behaviors have become more concerning over the last few months. She develops acutely worse behavior/memory problems every few weeks (?) that seem to resolve on their own. Sometimes she refuses to eat or drink. She gets confused when driving and has been observed to show very concerning and unsafe driving habits. She is no longer able to cook for herself. Extensive goals of care counseling was undertaken with patient and her POA, her son Deep. We discussed that she has dementia, which is progressive, has clearly worsened, and will continue to worsen over time. I encouraged Deep to get a medication dispenser for his mom. All of her BP medications were changed to once daily medications (this was discussed with her windshield repair technician, Dr. Greene). Her code status was changed to DNR/DNI. I encouraged them to begin looking at local assisted living facilities, as she is no longer safe to live alone. She and her son were advised that she should stop driving. She was advised to follow up with her PCP and windshield repair technician in 1-2 weeks. She was referred to Home Health for RN, PT, OT. - Time Time Spent with patient: 35 or more minutes Medications reviewed and adjusted accordingly: Yes Anticipated Discharge Disposition: Home with Home Health Anticipated Discharge Timeframe: within 48 hours
[2020-08-28] MEDS ORDERED: PANTOPRAZOLE SODIUM 20 MG TABLET.DR PO SCH (06:00)
[2020-08-28] MEDS ORDERED: RINGERS SOLUTION,LACTATED 1,000 ML IV PRN (09:09)
[2020-08-28] MEDS ORDERED: METOPROLOL TARTRATE 25 MG TABLET PO SCH (10:00)
[2020-08-28] MEDS ORDERED: CLONIDINE HCL 0.2 MG TABLET PO SCH (10:00)
[2020-08-28] MEDS ORDERED: ALLOPURINOL 100 MG TABLET PO SCH (10:00)
[2020-08-28] MEDS ORDERED: ENOXAPARIN SODIUM INJ 40 MG/0.4 ML DISP.SYRIN SUBCUT SCH (10:00)
[2020-08-28] MEDS ORDERED: HYDRALAZINE HCL 50 MG TABLET PO SCH (10:00)
[2020-08-28 15:44] VITALS: BP 175/63
[2020-08-28] MEDS ORDERED: INFLUENZA QUAD (6MOS+) 2020-21 VAC 0.5 ML SYR IM ONE (16:30)
--- NOTE | 2020-08-28 18:45 | PDOC DISCHARGE SUMMARY ---
Impression - Admit/DC Date/PCP Admission Date/Primary Care Provider: 08/28/20 00:18 ALTA ALMONTE MD Discharge Date: 08/28/20 - Discharge Diagnosis (1) Alzheimer's dementia Is this a current diagnosis for this admission?: Yes (2) Altered mental status Is this a current diagnosis for this admission?: Yes (3) Hyperlipidemia Is this a current diagnosis for this admission?: Yes (4) Hypertension Is this a current diagnosis for this admission?: Yes (5) Unsteady gait Is this a current diagnosis for this admission?: Yes - Assessment Summary: Ms. Tamayo is an 85 year old woman with PMH of Alzheimer's Dementia who presented to the ED with her son due to concern for "altered mental status." Her son states that, at baseline, his mother lives alone but requires assistance with all iADLs. She has recently been having trouble taking her medications by herself, no longer being able to correctly place them in her medication dispenser, and sometimes not taking medications or taking them repeatedly throughout the day. He states that she has had memory problems for many years, but that her memory and behaviors have become more concerning over the last few months. She develops acutely worse behavior/memory problems every few weeks (?) that seem to resolve on their own. Sometimes she refuses to eat or drink. She gets confused when driving and has been observed to show very concerning and unsafe driving habits. She is no longer able to cook for herself. Extensive goals of care counseling was undertaken with patient and her POA, her son Deep. We discussed that she has dementia, which is progressive, has clearly worsened, and will continue to worsen over time. I encouraged Deep to get a medication dispenser for his mom. All of her BP medications were changed to once daily medications (this was discussed with her city treasurer, Dr. Greene). Her code status was changed to DNR/DNI. I encouraged them to begin looking at local assisted living facilities, as she is no longer safe to live alone. She and her son were advised that she should stop driving. She was advised to follow up with her PCP and city treasurer in 1-2 weeks. She was referred to Home Health for RN, PT, OT. - Additional Information Resuscitation Status: Do Not Resuscitate Discharge Diet: Cardiac Discharge Activity: Activity As Tolerated Referrals: DON ROLDAN MD [NO LOCAL MD] - Follow up as needed Prescriptions: Losartan Potassium [Cozaar] 25 mg PO DAILY #30 tablet Isosorbide Mononitrate [Imdur 30 mg Tablet.er] 30 mg PO DAILY #30 tab.er.24h Metoprolol Succinate [Toprol Xl 25 mg Tab.sr] 25 mg PO DAILY #30 tab.sr.24h Home Medications: Allopurinol [Zyloprim 100 mg Tablet] 100 mg PO DAILY 08/28/20 Amlodipine Besylate [Norvasc 10 mg Tablet] 10 mg PO QHS 08/28/20 Atorvastatin Calcium [Lipitor 40 mg Tablet] 40 mg PO QHS 08/28/20 Calcitriol [Rocaltrol 0.25 mcg Capsule] 1 cap PO MOWEFR@1000 08/28/20 Isosorbide Mononitrate [Imdur 30 mg Tablet.er] 30 mg PO DAILY #30 tab.er.24h 08/28/20 Losartan Potassium [Cozaar] 25 mg PO DAILY #30 tablet 08/28/20 Metoprolol Succinate [Toprol Xl 25 mg Tab.sr] 25 mg PO DAILY #30 tab.sr.24h 08/28/20 Mirtazapine [Remeron 15 mg Tablet] 7.5 mg PO QHS 08/28/20 History of Present Illiness History of Present Illness: BEVERLEY TAMAYO is a 85 year old female Physical Exam Vital Signs: Temp Pulse Resp BP Pulse Ox 98.7 F 63 12 175/63 H 97 08/28/20 15:58 08/28/20 15:58 08/28/20 15:58 08/28/20 15:37 08/28/20 15:58 Intake & Output 08/27/20 08/28/20 08/29/20 06:59 06:59 06:59 Intake Total 540 Balance 540 Weight 61.235 kg Results Laboratory Results: WBC 8.8 10^3/uL (4.0-10.5) 08/27/20 20:15 RBC 3.75 10^6/uL (3.72-5.28) 08/27/20 20:15 Hgb 11.7 g/dL (12.0-15.5) L 08/27/20 20:15 Hct 35.0 % (36.0-47.0) L 08/27/20 20:15 MCV 94 fl (80-97) 08/27/20 20:15 MCH 31.3 pg (27.0-33.4) 08/27/20 20:15 MCHC 33.5 g/dL (32.0-36.0) 08/27/20 20:15 RDW 13.9 % (11.5-14.0) 08/27/20 20:15 Plt Count 167 10^3/uL (150-450) 08/27/20 20:15 Lymph % (Auto) 31.7 % (13-45) 08/27/20 20:15 [place] % (Auto) 14.5 % (3-13) H 08/27/20 20:15 Eos % (Auto) 2.4 % (0-6) 08/27/20 20:15 Baso % (Auto) 1.8 % (0-2) 08/27/20 20:15 Absolute Neuts (auto) 4.4 10^3/uL (1.7-8.2) 08/27/20 20:15 Absolute Lymphs (auto) 2.8 10^3/uL (0.5-4.7) 08/27/20 20:15 Absolute Monos (auto) 1.3 10^3/uL (0.1-1.4) 08/27/20 20:15 Absolute Eos (auto) 0.2 10^3/uL (0.0-0.6) 08/27/20 20:15 Absolute Basos (auto) 0.2 10^3/uL (0.0-0.2) 08/27/20 20:15 Seg Neutrophils % 49.6 % (42-78) 08/27/20 20:15 PT 12.8 SEC (11.4-15.4) 08/27/20 20:15 INR 0.94 08/27/20 20:15 APTT 38.6 SEC (23.5-35.8) H 08/27/20 20:15 Sodium 139.9 mmol/L (137-145) 08/27/20 20:15 Potassium 4.3 mmol/L (3.6-5.0) 08/27/20 20:15 Chloride 111 mmol/L (98-107) H 08/27/20 20:15 Carbon Dioxide 18 mmol/L (22-30) L 08/27/20 20:15 Anion Gap 11 (5-19) 08/27/20 20:15 BUN 38 mg/dL (7-20) H 08/27/20 20:15 Creatinine 1.96 mg/dL (0.52-1.25) H 08/27/20 20:15 Est GFR ( Amer) 29 (>60) L 08/27/20 20:15 Est GFR (MDRD) Non-Af 24 (>60) L 08/27/20 20:15 Glucose 90 mg/dL (75-110) 08/27/20 20:15 POC Glucose 82 mg/dL (70-110) 08/27/20 20:29 Lactic Acid 0.8 mmol/L (0.7-2.1) 08/27/20 20:15 Calcium 8.8 mg/dL (8.4-10.2) 08/27/20 20:15 Total Bilirubin 0.5 mg/dL (0.2-1.3) 08/27/20 20:15 Direct Bilirubin 0.3 mg/dL (0.0-0.4) 08/27/20 20:15 Neonat Total Bilirubin Not Reportable 08/27/20 20:15 Neonat Direct Bilirubin Not Reportable 08/27/20 20:15 Neonat Indirect Bili Not Reportable 08/27/20 20:15 AST 17 U/L (14-36) 08/27/20 20:15 ALT 14 U/L (<35) 08/27/20 20:15 Alkaline Phosphatase 90 U/L (38-126) 08/27/20 20:15 Troponin I < 0.012 ng/mL 08/27/20 20:15 Total Protein 6.7 g/dL (6.3-8.2) 08/27/20 20:15 Albumin 3.9 g/dL (3.5-5.0) 08/27/20 20:15 Urine Color STRAW 08/27/20 23:00 Urine Appearance CLEAR 08/27/20 23:00 Urine pH 5.0 (5.0-9.0) 08/27/20 23:00 Ur Specific [place] 1.005 08/27/20 23:00 Urine Protein NEGATIVE mg/dL (NEGATIVE) 08/27/20 23:00 Urine Glucose (UA) NEGATIVE mg/dL (NEGATIVE) 08/27/20 23:00 Urine Ketones NEGATIVE mg/dL (NEGATIVE) 08/27/20 23:00 Urine Blood NEGATIVE (NEGATIVE) 08/27/20 23:00 Urine Nitrite NEGATIVE (NEGATIVE) 08/27/20 23:00 Urine Bilirubin NEGATIVE (NEGATIVE) 08/27/20 23:00 Urine Urobilinogen NEGATIVE mg/dL (<2.0) 08/27/20 23:00 Ur Leukocyte Esterase TRACE (NEGATIVE) H 08/27/20 23:00 Urine WBC (Auto) 6 /HPF 08/27/20 23:00 Squamous Epi Cells Auto <1 /HPF 08/27/20 23:00 Urine Mucus (Auto) RARE /LPF 08/27/20 23:00 Urine Ascorbic Acid NEGATIVE (NEGATIVE) 08/27/20 23:00 08/27/20 20:15 Troponin I < 0.012 Impressions: Chest X-Ray 08/27/20 20:59 IMPRESSION: No acute disease. copyright 2010 [employer]- All Rights Reserved Head CT 08/27/20 20:59 IMPRESSION: 1. No acute intracranial findings. 2. Senescent changes with chronic microvascular ischemia. Stroke Is this a Stroke Patient?: No Acute Heart Failure Is this a Heart Failure Patient?: No
--- NOTE | 2020-08-28 18:51 | ADVANCED CARE ---
- Diagnosis (1) Alzheimer's dementia Diagnosis Current: Yes (2) Altered mental status Diagnosis Current: Yes Resuscitation Status: Do Not Resuscitate Discussion: Extensive goals of care counseling was undertaken with patient and her POA, her son Deep. We discussed that she has dementia, which is progressive, has clearly worsened, and will continue to worsen over time. I encouraged them to begin looking at local assisted living facilities, as she is no longer safe to live alone. Her code status was changed to DNR/DNI. Time Spent: >30 minutes
[2020-08-28] MEDS ORDERED: ASPIRIN 81 MG TABLET, ENT COATED PO SCH (22:00)
[2020-08-28] MEDS ORDERED: ATORVASTATIN CALCIUM 40 MG TABLET PO SCH (22:00)
[2020-08-29] MEDS ORDERED: INFLUENZA QUAD (6MOS+) 2020-21 VAC 0.5 ML SYR IM ONE (08:00)
== END 2020-08-28 17:45 | disposition home health service (06) ==
LOC: ER 20:04 → EH 08-28 00:18 → 4W 08-28 07:53
PROVIDERS: ADMIT Hospitalist; ATTEND Hospitalist
DX: G30.9 Alzheimer's disease, unspecified (principal); F02.80 Dementia in other diseases classified elsewhere, unspecified severity, without behavioral disturbance, psychotic disturbance, mood disturbance, and anxiety; R41.0 Disorientation, unspecified; E78.5 Hyperlipidemia, unspecified; I12.0 Hypertensive chronic kidney disease with stage 5 chronic kidney disease or end stage renal disease; N18.6 End stage renal disease; Z23 Encounter for immunization; R26.81 Unsteadiness on feet; R53.83 Other fatigue; I25.10 Atherosclerotic heart disease of native coronary artery without angina pectoris; Z79.899 Other long term (current) drug therapy; Z88.0 Allergy status to penicillin; Z88.2 Allergy status to sulfonamides; Z88.8 Allergy status to other drugs, medicaments and biological substances
CPT/HCPCS: 93005; 99285; 36415; 82962; 83605; 85025; 85610; 85730; 80053; 81001; 84484; 71045; 70450; 90686; 93010; 97116; 97162; 97535; 97166; G0378 ×3; G0008; A9270 ×6; J7030; J7120; 90471; J3490

== ENCOUNTER 2020-08-31 19:36 | Emergency (ER) | payer MEDICARE ==
--- NOTE | 2020-08-31 21:12 | ER Document Report ---
ED Medical Screen (RME) - General Chief Complaint: High Blood Pressure Stated Complaint: NO COMPLAINT, DOCTOR WANTED PT TO BE CHECKED Time Seen by Provider: 08/31/20 21:03 Primary Care Provider: ALTA ALMONTE MD [Primary Care Provider] - Follow up as needed Mode of Arrival: Wheelchair Information source: Patient, Relative - Son (POA) Notes: Patient is an 85-year-old female with dementia recently discharged from [facility] presenting with complaints of elevated blood pressure. Patient son states they had a follow-up today at the cardiology office. They were told to come to the emergency department if her blood pressure was greater than 180 systolic. Patient is asymptomatic, denies any chest pain or shortness of breath. She states she feels well. Her son reports she ate breakfast and lunch today but declined dinner. He states she was very anxious and angry today which may have been contributing to her elevated blood pressure. He would like to at least basic labs drawn per the recommendation of their primary care provider. Patient is alert, answering questions appropriately. No acute distress noted. I have greeted and performed a rapid initial assessment of this patient. A comprehensive ED assessment and evaluation of the patient, analysis of test results and completion of the medical decision making process will be conducted by additional ED providers. I have specifically instructed the patient or family members with the patient to immediately return to any nursing staff should anything change in the patient's condition or with their chief complaint. TRAVEL OUTSIDE OF THE [place] IN LAST 30 DAYS: No - Related Data Allergies/Adverse Reactions: enalapril maleate [From Vasotec] Allergy (Verified 08/31/20 21:06) TONGUE SWELLING enalaprilat dihydrate [From Vasotec] Allergy (Verified 08/31/20 21:06) TONGUE SWELLING metoclopramide HCl [From Reglan] Allergy (Verified 08/31/20 21:06) JAWS TO LOCK Penicillins Allergy (Verified 08/31/20 21:06) hives all over body Sulfa (Sulfonamide Antibiotics) Allergy (Verified 08/31/20 21:06) Hives Past Medical History - Social History Frequency of alcohol use: None Drug Abuse: None - Past Medical History Cardiac Medical History: Reports: Hx Coronary Artery Disease, Hx Hypercholesterolemia, Hx Hypertension Denies: Hx Atrial Fibrillation, Hx Congestive Heart Failure, Hx Heart Attack, Hx Peripheral Vascular Disease, Hx Pulmonary Embolism, Hx Heart Murmur Pulmonary Medical History: Reports: Hx Bronchitis Denies: Hx Asthma, Hx COPD, Hx Pneumonia, Hx Respiratory Failure, Hx Sleep Apnea, Hx Tuberculosis Neurological Medical History: Denies: Hx Cerebrovascular Accident, Hx Seizures, Hx Parkinson's Disease Endocrine Medical History: Denies: Hx Graves' Disease, Hx Hyperthyroidism, Hx Hypothyroidism Renal/ Medical History: Reports: Hx End Stage Renal Disease. Denies: Hx Kidney Stones, Hx Ovarian Cysts, Hx Peritoneal Dialysis, Hx Pelvic Inflammatory Disease Malignancy Medical History: Denies: Hx Breast Cancer, Hx Cervical Cancer, Hx Leukemia, Hx Lung Cancer, Hx Ovarian Cancer GI Medical History: Reports: Hx Hiatal Hernia. Denies: Hx Crohn's Disease, Hx Gastroesophageal Reflux Disease, Hx Hepatitis, Hx Irritable Bowel, Hx Liver Failure, Hx Pancreatitis, Hx Ulcer Musculoskeltal Medical History: Denies Hx Arthritis, Denies Hx Fibromyalgia, Denies Hx Multiple Sclerosis, Denies Hx Muscular Dystrophy, Denies Hx Systemic Lupus Erythematosus Psychiatric Medical History: Denies: Hx Bipolar Disorder, Hx Dementia, Hx Depression, Hx Post Traumatic Stress Disorder, Hx Schizophrenia Traumatic Medical History: Denies: Hx Fractures Infectious Medical History: Denies: Hx Hepatitis, Hx HIV Past Surgical History: Reports: Hx Coronary Artery Bypass Graft, Hx Hysterectomy, Hx Open Heart Surgery - cabgx1, Hx Tonsillectomy - 40 years ago. Denies: Hx Appendectomy, Hx Bowel Surgery, Hx Section, Hx Cholecystect quintin, Hx Colostomy, Hx Gastric Bypass Surgery, Hx Herniorrhaphy, Hx Mastectomy, Hx Pacemaker, Hx Tubal Ligation - Immunizations Hx Diphtheria, Pertussis, Tetanus Vaccination: Yes Physical Exam - Vital signs Vitals: Temp Pulse Resp BP Pulse Ox 98.4 F 85 20 175/76 H 97 08/31/20 20:58 08/31/20 20:58 08/31/20 20:58 08/31/20 20:58 08/31/20 20:58 Course - Vital Signs Vital signs: Temp Pulse Resp BP Pulse Ox 98.4 F 85 20 175/76 H 97 08/31/20 20:58 08/31/20 20:58 08/31/20 20:58 08/31/20 20:58 08/31/20 20:58 Doctor's Discharge - Discharge Referrals: ALTA ALMONTE MD [Primary Care Provider] - Follow up as needed
[2020-08-31 22:14] LABS: ABSOLUTE BASOPHILS # (AUTO) 0.2 10^3/uL (0.0-0.2); ABSOLUTE EOSINOPHILS # (AUTO) 0.2 10^3/uL (0.0-0.6); ABSOLUTE LYMPHOCYTES (AUTO) 1.6 10^3/uL (0.5-4.7); ABSOLUTE MONOCYTES (AUTO) 0.9 10^3/uL (0.1-1.4); ABSOLUTE NEUT (AUTO) 4.6 10^3/uL (1.7-8.2); BASOPHILS % (AUTO) 2.1 % (0-2); EOSINOPHILS % (AUTO) 2.3 % (0-6); HEMATOCRIT 35.7 % (36.0-47.0); HEMOGLOBIN 11.9 g/dL (12.0-15.5); MEAN CORPUSCULAR HEMOGLOBIN 31.3 pg (27.0-33.4); MEAN CORPUSCULAR HGB CONC 33.4 g/dL (32.0-36.0); MEAN CORPUSCULAR VOLUME 94 fl (80-97); MONOCYTES % (AUTO) 11.4 % (3-13); PLATELET COUNT 163 10^3/uL (150-450); RED BLOOD COUNT 3.82 10^6/uL (3.72-5.28); RED CELL DISTRIBUTION WIDTH 14.3 % (11.5-14.0); SEGMENTED NEUTROPHILS % (AUTO) 62.2 % (42-78); TOTAL CELLS COUNTED % (AUTO) 100 %; WHITE BLOOD COUNT 7.5 10^3/uL (4.0-10.5)
[2020-08-31 22:32] LABS: ALBUMIN 4.4 g/dL (3.5-5.0); ALKALINE PHOSPHATASE 70 U/L (38-126); ANION GAP 13 (5-19); ASPARTATE AMINO TRANSFERASE 17 U/L (14-36); BILIRUBIN,DIRECT 0.2 mg/dL (0.0-0.4); BILIRUBIN,TOTAL 0.6 mg/dL (0.2-1.3); BLOOD UREA NITROGEN 49 mg/dL (7-20); CALCIUM 9.5 mg/dL (8.4-10.2); CARBON DIOXIDE 20 mmol/L (22-30); CHLORIDE 107 mmol/L (98-107); GLUCOSE 114 mg/dL (75-110); POTASSIUM 4.4 mmol/L (3.6-5.0); TOTAL PROTEIN 7.2 g/dL (6.3-8.2)
[2020-09-01 04:04] VITALS: BP 180/74
--- NOTE | 2020-09-01 19:55 | EKG REPORT ---
SEVERITY:- ABNORMAL ECG - SINUS RHYTHM ABERRANT COMPLEX, POSSIBLY SUPRAVENTRICULAR SABRA, CONSIDER BIATRIAL ABNORMALITIES ABNORMAL T, CONSIDER ISCHEMIA, DIFFUSE LEADS BORDERLINE PROLONGED QT INTERVAL : Confirmed by: Anshu Doyle 01-Sep-2020 19:53:59
== END 2020-09-01 04:57 | disposition left against medical advice (07) ==
LOC: ER 19:36
DX: I10 Essential (primary) hypertension (principal); I25.10 Atherosclerotic heart disease of native coronary artery without angina pectoris; Z95.1 Presence of aortocoronary bypass graft; Z88.8 Allergy status to other drugs, medicaments and biological substances; Z88.0 Allergy status to penicillin; Z88.2 Allergy status to sulfonamides; Z53.20 Procedure and treatment not carried out because of patient's decision for unspecified reasons
CPT/HCPCS: 36415; 80053; 83735; 85025; 93005; 93010; 99281

== ENCOUNTER 2020-10-13 17:28 | Emergency (ER) | payer MEDICARE, OTHER ==
--- NOTE | 2020-10-13 21:56 | ER Document Report ---
ED Neuro Symptoms/Deficit - General Chief Complaint: Decreased LOC Stated Complaint: FALL/FACIAL INJURY Time Seen by Provider: 10/13/20 21:55 Primary Care Provider: ANA PRINCE PA-C [Primary Care Provider] - Follow up as needed Information source: Patient, Relative Notes: 10/13/20 20:25 - ED Nursing Note by WILTON LEVY Acct Num: [id number] : 1935 Patient Age: 85 Pt ambulated into ER with steady and even gait. Pt was sent over by floor inspector after the patient was traveling with son from [place] and fell on 10/01 after losing her balance and landed on the couch then fell again on 10/07 due to losing consciousness. Son witnessed this fall and states that the pt hit her head on the floor. Pt was unresponsive for a few minutes, non-verbal then began to regain consciousness. Pt did not seek medical attention after this. Pt denies any sudden lose of balance, weakness, visual changes, or any other neurological symptoms. Pt denies any pain after the fall. Pt aaox4, skin warm and dry, respirations e/u, speaking in clear and coherent sentences. Son at bedside with pt. MY NOTES Much of this history comes from Deep her son who is her main historian and caregiver and power of business attorney. Patient was placed in the hospital in August here and seen by Dr. Valdez who changed her blood pressure medicines. Patient fell on 01 October onto her couch without any LOC but on 07 October she and her son Deep were in a RV around the [facility] when she passed out striking her head and right face against the side of the RV. She also injured her right hip and right knee with ecchymosis. Fall evaluated her and within 3 to 5 minutes the patient was oriented to her normal sensorium. Patient has a history of dementia and thinks he is her or her uncle from time to time today patient is alert and awake and oriented to person and place and purpose. She has no verbal problems and appears to follow our questioning without proble m. Son reports this is the eighth time this year patient has fallen TRAVEL OUTSIDE OF THE [place] IN LAST 30 DAYS: No - HPI Patient complains to provider of: Difficulty standing Onset: Last week Awoke with symptoms: No - Related Data Allergies/Adverse Reactions: enalapril maleate [From Vasotec] Allergy (Verified 08/31/20 21:06) TONGUE SWELLING enalaprilat dihydrate [From Vasotec] Allergy (Verified 08/31/20 21:06) TONGUE SWELLING metoclopramide HCl [From Reglan] Allergy (Verified 08/31/20 21:06) JAWS TO LOCK Penicillins Allergy (Verified 08/31/20 21:06) hives all over body Sulfa (Sulfonamide Antibiotics) Allergy (Verified 08/31/20 21:06) Hives Past Medical History - General Information source: Patient - Social History Smoking Status: Former Smoker Cigarette use (# per day): No Chew tobacco use (# tins/day): No Smoking Education Provided: No Frequency of alcohol use: None Drug Abuse: None Lives with: Family Family History: Reviewed & Not Pertinent Patient has suicidal ideation: No Patient has homicidal ideation: No - Past Medical History Cardiac Medical History: Reports: Hx Coronary Artery Disease, Hx Hypercholesterolemia, Hx Hypertension Denies: Hx Atrial Fibrillation, Hx Congestive Heart Failure, Hx Heart Attack, Hx Peripheral Vascular Disease, Hx Pulmonary Embolism, Hx Heart Murmur Pulmonary Medical History: Reports: Hx Bronchitis Denies: Hx Asthma, Hx COPD, Hx Pneumonia, Hx Respiratory Failure, Hx Sleep Apnea, Hx Tuberculosis Neurological Medical History: Denies: Hx Cerebrovascular Accident, Hx Seizures, Hx Parkinson's Disease Endocrine Medical History: Denies: Hx Graves' Disease, Hx Hyperthyroidism, Hx Hypothyroidism Renal/ Medical History: Reports: Hx End Stage Renal Disease. Denies: Hx Kidney Stones, Hx Ovarian Cysts, Hx Peritoneal Dialysis, Hx Pelvic Inflammatory Disease Malignancy Medical History: Denies: Hx Breast Cancer, Hx Cervical Cancer, Hx Leukemia, Hx Lung Cancer, Hx Ovarian Cancer GI Medical History: Reports: Hx Hiatal Hernia. Denies: Hx Crohn's Disease, Hx Gastroesophageal Reflux Disease, Hx Hepatitis, Hx Irritable Bowel, Hx Liver Failure, Hx Pancreatitis, Hx Ulcer Musculoskeletal Medical History: Denies Hx Arthritis, Denies Hx Fibromyalgia, Denies Hx Multiple Sclerosis, Denies Hx Muscular Dystrophy, Denies Hx Systemic Lupus Erythematosus Psychiatric Medical History: Denies: Hx Bipolar Disorder, Hx Dementia, Hx Depression, Hx Post Traumatic Stress Disorder, Hx Schizophrenia Traumatic Medical History: Denies: Hx Fractures Infectious Medical History: Denies: Hx Hepatitis, Hx HIV Past Surgical History: Reports: Hx Coronary Artery Bypass Graft, Hx Hysterectomy, Hx Open Heart Surgery - cabgx1, Hx Tonsillectomy - 40 years ago. Denies: Hx Appendectomy, Hx Bowel Surgery, Hx Section, Hx Cholecystectomy, Hx Colostomy, Hx Gastric Bypass Surgery, Hx Herniorrhaphy, Hx Mastectomy, Hx Pacemaker, Hx Tubal Ligation - Immunizations Hx Diphtheria, Pertussis, Tetanus Vaccination: Yes Hx Pneumococcal Vaccination: 11/20/09 Review of Systems - Review of Systems Constitutional: See HPI, Weakness EENT: No symptoms reported Cardiovascular: No symptoms reported Respiratory: No symptoms reported Gastrointestinal: No symptoms reported Genitourinary: No symptoms reported Female Genitourinary: No symptoms reported Musculoskeletal: See HPI, Joint pain - Right hip right knee pain Skin: See HPI, Other - Hematoma to right knee right groin Hematologic/Lymphatic: No symptoms reported Neurological/Psychological: No symptoms reported -: Yes All other systems reviewed and negative Physical Exam - Vital signs Vitals: Temp Pulse Resp BP Pulse Ox 97.8 F 79 16 174/73 H 98 10/13/20 17:42 10/13/20 17:42 10/13/20 17:42 10/13/20 17:42 10/13/20 17:42 Interpretation: Normal - General General appearance: Appears well, Alert - HEENT Head: Normocephalic, Atraumatic Eyes: Normal Pupils: PERRL - Respiratory Respiratory status: No respiratory distress Chest status: Nontender Breath sounds: Normal Chest palpation: Normal - Cardiovascular Rhythm: Regular Heart sounds: Normal auscultation Murmur: No - Abdominal Inspection: Normal Distension: No distension Bowel sounds: Normal Tenderness: Nontender Organomegaly: No organomegaly - Rectal Hemorrhoids: Other - Deferred - Genitourinary [place]iman[place] exam: Other - Deferred - Back Back: Normal, Nontender - Extremities General upper extremity: Normal inspection, Nontender, Normal color, Normal ROM, Normal temperature General lower extremity: Tender - Tender right knee diffusely anteriorly with at least 12 cm diameter of ecchymosis. Patient also has mild ecchymosis of her right lateral hip pelvis around 2 cm diameter and tenderness around this lateral hip as well on palpation., Normal ROM, Normal temperature, Normal weight bearing. No: Dieudonne's sign - Neurological Neuro grossly intact: Yes Cognition: Normal Orientation: AAOx4 [place] Coma Scale Eye Opening: Spontaneous [place] Coma Scale Verbal: Oriented [place] Coma Scale Motor: Obeys Commands [place] Coma Scale Total: 15 Speech: Normal Motor strength normal: LUE, RUE, LLE, RLE Sensory: Normal - Psychological Associated symptoms: Normal affect, Normal mood - Skin Skin Temperature: Warm Skin Moisture: Dry Skin Color: Normal Course - Vital Signs Vital signs: Temp Pulse Resp BP Pulse Ox 98.4 F 70 18 165/90 H 98 10/13/20 21:58 10/13/20 21:58 10/13/20 21:58 10/13/20 21:58 10/13/20 21:58 - Laboratory Result Diagrams: 10/13/20 23:12 10/13/20 23:12 Laboratory results interpreted by me: 10/13/20 10/13/20 10/13/20 23:12 23:12 23:12 RBC 3.29 L Hgb 10.5 L Hct 31.5 L RDW 14.2 H Plt Count 130 L Chloride 109 H Carbon Dioxide 21 L BUN 38 H Creatinine 2.05 H Est GFR ( Amer) 28 L Est GFR (MDRD) Non-Af 23 L Lactic Acid 0.5 L - Diagnostic Test Radiology reviewed: Reports reviewed - All CTs and x-rays were negative for fractures. Discharge - Discharge Clinical Impression: Dementia Qualifiers: Dementia type: unspecified type Dementia behavioral disturbance: without behavioral disturbance Qualified Code(s): F03.90 - Unspecified dementia without behavioral disturbance Hypertension Qualifiers: Hypertension type: unspecified Qualified Code(s): I10 - Essential (primary) hypertension Alzheimer's dementia Qualifiers: Alzheimer's disease onset: early-onset Dementia behavioral disturbance: with behavioral disturbance Qualified Code(s): G30.0 - Alzheimer's disease with early onset Fall Qualifiers: Encounter type: initial encounter Qualified Code(s): W19.XXXA - Unspecified fall, initial encounter Disposition: HOME, SELF-CARE Additional Instructions: Follow-up with personal doctor this week return to ER as needed;take your medicines as directed. Encourage fluids Referrals: ANA PRINCE PA-C [Primary Care Provider] - Follow up as needed
--- NOTE | 2020-10-13 22:46 | RADIOLOGY REPORT (SQ) ---
CT CERVICAL SPINE: 10/13/2020 9:43 PM NURSE TECH TECHNIQUE: Axial contiguous images were obtained through the cervical spine without intravenous contrast. Sagittal and coronal reconstructions were also reviewed. This exam was performed according to our departmental dose-optimization program, which includes automated exposure control, adjustment of the mA and/or KV according to the patient's size and/or use of iterative reconstruction technique. COMPARISON: None available INDICATION: 85-year old patient with neck pain, fall. FINDINGS: There is anterolisthesis of C4 over C5 by. There is moderate facet hypertrophy noted. Multilevel anterior osteophytes are seen at the cervical spine. The vertebral body heights appear well maintained. No significant pre-vertebral soft tissue swelling is noted. No definite fracture or subluxation is noted. Mild to moderate multilevel intervertebral disc space narrowing is seen. The visualized brain parenchyma appears unremarkable. The craniocervical junction is unremarkable. Mild centrilobular and paraseptal emphysematous changes are present. There are atherosclerotic calcification seen at both carotid bulbs. IMPRESSION: There are no findings to suggest an acute fracture or subluxation within the cervical spine.
--- NOTE | 2020-10-13 22:50 | RADIOLOGY REPORT (SQ) ---
CT of the head: 10/13/2020 9:45 PM UPSET WELDING MACHINE OPERATOR HISTORY: 85-year-old patient with altered mental status, loss of consciousness. COMPARISON: CT the head from 08/27/2020 TECHNIQUE: Multiple axial contiguous images were obtained through the head without intravenous contrast administered. This exam was performed according to our departmental dose-optimization program, which includes automated exposure control, adjustment of the mA and/or KV according to the patient's size and/or use of iterative reconstruction technique. FINDINGS: The ventricles and cerebral sulci demonstrate mild prominence, consistent with cerebral atrophy. There are mild periventricular hypodensities, suggestive of periventricular white matter changes. These are most pronounced within the frontal lobes. The garcia-white matter differentiation is within normal limits. Both orbits appear unremarkable. The mastoid air cells appear clear. The visualized paranasal sinuses appear clear. The calvarium is intact. No extra-axial fluid collection is seen. No midline shift or mass effect is apparent. There are no findings to suggest acute intracranial hemorrhage. IMPRESSION: 1. No acute intracranial hemorrhage is seen. 2. Mild cerebral atrophy and periventricular white matter changes are seen.
--- NOTE | 2020-10-13 22:51 | RADIOLOGY REPORT (SQ) ---
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 Comparison: Chest radiograph performed 08/27/2020. Findings: The cardiomediastinal silhouette is normal in size. No pneumothorax is seen. No acute airspace opacities are seen. No discrete pleural effusion is apparent. Midline sternotomy changes are seen. There is evidence of prior CABG. Impression: No acute airspace opacities are seen.
--- NOTE | 2020-10-13 22:51 | RADIOLOGY REPORT (SQ) ---
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 TECHNIQUE: AP, oblique, and lateral images of the right knee were obtained. COMPARISON: None available FINDINGS: There are no findings to suggest an acute fracture or subluxation. No suprapatellar joint effusion is seen. The visualized soft tissues are grossly unremarkable. No gross erosions or abnormal soft tissue calcifications are seen. IMPRESSION: There are no findings to suggest an acute fracture or subluxation within the right knee.
--- NOTE | 2020-10-13 22:54 | RADIOLOGY REPORT (SQ) ---
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 COMPARISON: None available HISTORY: 85-year-old patient with recent fall, right hip pain. FINDINGS: The visualized sacroiliac joints are unremarkable. There are no findings to suggest an acute fracture or subluxation within the right hip. There are no findings to suggest an acute fracture of the pelvis. The visualized lower lumbar spine is unremarkable. 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 IMPRESSION: There are no findings to suggest an acute fracture or subluxation of the right hip. There are no findings to suggest an acute fracture within the pelvis.
[2020-10-13 23:36] LABS: ABSOLUTE BASOPHILS # (AUTO) 0.1 10^3/uL (0.0-0.2); ABSOLUTE EOSINOPHILS # (AUTO) 0.1 10^3/uL (0.0-0.6); ABSOLUTE LYMPHOCYTES (AUTO) 1.3 10^3/uL (0.5-4.7); ABSOLUTE MONOCYTES (AUTO) 0.7 10^3/uL (0.1-1.4); ABSOLUTE NEUT (AUTO) 3.3 10^3/uL (1.7-8.2); EOSINOPHILS % (AUTO) 2.6 % (0-6); HEMATOCRIT 31.5 % (36.0-47.0); HEMOGLOBIN 10.5 g/dL (12.0-15.5); LYMPHOCYTES % (AUTO) 23.7 % (13-45); MEAN CORPUSCULAR HEMOGLOBIN 32.1 pg (27.0-33.4); MEAN CORPUSCULAR HGB CONC 33.4 g/dL (32.0-36.0); MEAN CORPUSCULAR VOLUME 96 fl (80-97); MONOCYTES % (AUTO) 12.2 % (3-13); PLATELET COUNT 130 10^3/uL (150-450); RED BLOOD COUNT 3.29 10^6/uL (3.72-5.28); RED CELL DISTRIBUTION WIDTH 14.2 % (11.5-14.0); SEGMENTED NEUTROPHILS % (AUTO) 59.5 % (42-78); TOTAL CELLS COUNTED % (AUTO) 100 %; WHITE BLOOD COUNT 5.6 10^3/uL (4.0-10.5)
[2020-10-13 23:37] LABS: PROTHROMBIN TIME 13.7 SEC (11.4-15.4)
[2020-10-13 23:38] LABS: INTERNATIONAL RATION (INR) 1.03
[2020-10-13 23:47] LABS: ALBUMIN 3.7 g/dL (3.5-5.0); ALKALINE PHOSPHATASE 73 U/L (38-126); ANION GAP 8 (5-19); ASPARTATE AMINO TRANSFERASE 17 U/L (14-36); BILIRUBIN,DIRECT 0.1 mg/dL (0.0-0.4); BILIRUBIN,TOTAL 0.3 mg/dL (0.2-1.3); BLOOD UREA NITROGEN 38 mg/dL (7-20); CALCIUM 8.8 mg/dL (8.4-10.2); CARBON DIOXIDE 21 mmol/L (22-30); CHLORIDE 109 mmol/L (98-107); CREATINE KINASE 58 U/L (30-135); GLUCOSE 104 mg/dL (75-110); POTASSIUM 4.2 mmol/L (3.6-5.0); TOTAL PROTEIN 6.4 g/dL (6.3-8.2)
[2020-10-14 01:58] VITALS: BP 158/85
== END 2020-10-14 01:00 | disposition home or self-care (01) ==
LOC: ER 17:28
DX: S80.01XA Contusion of right knee, initial encounter (principal); S70.01XA Contusion of right hip, initial encounter; G30.0 Alzheimer's disease with early onset; F02.80 Dementia in other diseases classified elsewhere, unspecified severity, without behavioral disturbance, psychotic disturbance, mood disturbance, and anxiety; I10 Essential (primary) hypertension; W19.XXXA Unspecified fall, initial encounter
CPT/HCPCS: 36415; 70450; 71045; 72125; 82550; 83605; 84484; 85025; 85610; 85730; 87070; 99285

== ENCOUNTER → 2020-10-13 | Outpatient (CLI) | payer MEDICARE, OTHER ==
[2020-10-13 13:49] LABS: ALBUMIN 4.4 g/dL (3.5-5.0); ALKALINE PHOSPHATASE 76 U/L (38-126); ANION GAP 13 (5-19); ASPARTATE AMINO TRANSFERASE 26 U/L (14-36); BILIRUBIN,DIRECT 0.1 mg/dL (0.0-0.4); BILIRUBIN,TOTAL 0.6 mg/dL (0.2-1.3); BLOOD UREA NITROGEN 40 mg/dL (7-20); CALCIUM 9.4 mg/dL (8.4-10.2); CARBON DIOXIDE 19 mmol/L (22-30); CHLORIDE 109 mmol/L (98-107); GLUCOSE 104 mg/dL (75-110); POTASSIUM 4.6 mmol/L (3.6-5.0); TOTAL PROTEIN 7.3 g/dL (6.3-8.2); TRIGLYCERIDES 123 mg/dL (<150)
[2020-10-13 14:00] LABS: DIRECT LDL 48 mg/dL (<100)
== END ==
LOC: OD 11:54
PROVIDERS: ATTEND Physician Assistant
DX: E78.2 Mixed hyperlipidemia (principal); I10 Essential (primary) hypertension; Z79.899 Other long term (current) drug therapy
CPT/HCPCS: 36415; 80048; 80061; 80076